=== PATIENT | female | born 1955 | race Caucasian/White ===

== ENCOUNTER 2017-08-21 10:29 | Observation (INO) ==
[2017-08-21] MEDS ORDERED: HYDROmorphone 2 MG/ML SYRINGE IV SCH (11:45)
[2017-08-21] MEDS ORDERED: ONDANSETRON 4 MG/2 ML VIAL IV ONE (11:45)
--- NOTE | 2017-08-21 11:49 | XRay Report ---
CLINICAL INFORMATION: Trauma COMPARISON: None. FINDINGS: Heart size, mediastinum and pulmonary vessels are unremarkable. Moderate subsegmental atelectasis present in the right base with minor subsegmental atelectasis in the left base. There is a 9 mm nodular density overlying the right midlung. Small bilateral pleural effusions are noted. No evidence of pneumothorax. Acute mildly displaced fractures through the lateral sixth, seventh and eighth ribs appreciated IMPRESSION: 1. Acute mildly displaced fractures through the lateral left sixth, seventh and eighth ribs. No pneumothorax. Small bilateral pleural effusions noted. 2. Subsegmental bibasilar atelectasis most prominent on the right 3. 9 mm nodular density right midlung. Suggest two view upright chest x-ray when patient returns to clinical baseline for reevaluation Interpreted and Authenticated by: Will Simpson 08/21/17
--- NOTE | 2017-08-21 12:12 | Emergency Department Note ---
Fall HPI - General Chief Complaint: Fall Stated Complaint: Fall, Left posterior upper rib pain Time Seen by Provider: 08/21/17 10:36 Source: patient Mode of arrival: ambulatory - History of Present Illness HPI Narrative: 62-year-old female presents with left rib pain and shortness of breath. States last night she was at her mom's house and has basement with stairs into her bedroom and she is missed a stair and tripped and fell. She landed on a wooden bed frame. She did not hit her head. No loss of consciousness. No head, neck , or back pain. States she is a little bit short of breath at rest and much worse with exertion. Is hard to move at all due to severe pain. She did use a topical marijuana cream with very little movement but states that the only way she can get here today to be seen. States she felt like she was having a hard time breathing last night and was clammy and hot. No cough. No fever or chills. No vomiting or diarrhea. Does have a little bit of nausea. No other home treatments. - Related Data Home Medications Medication Instructions Recorded Confirmed Calcium Carb/D3/Magnesium/Zinc 2 each PO DAILY 08/11/15 08/21/17 [Glbbxlo-Xqu-Qzkq-Vit D Tablet] Cranberry Conc/C/Bacill Coag 1 each PO DAILY 08/11/15 08/21/17 [Cranberry Tablet] Fish Oil 1,000 mg PO DAILY 08/11/15 08/21/17 Ledipasvir-Sofosbuvir 1 tab PO DAILY 08/11/15 08/21/17 Multivit with Calcium,Iron,Min 1 tab PO DAILY 08/11/15 08/21/17 [Maximum Daily Multivitamin] Mv,Iron,Min/Folic Acid/Biotin 200.1 mcg PO DAILY 08/11/15 08/21/17 [Hair, Skin & Nails Softgel] Potassium Gluconate 500 mg PO DAILY 08/11/15 08/21/17 Ubidecarenone/Vit E Acetate [Co 1 each PO DAILY 08/11/15 08/21/17 Q-10 100 mg Softgel] Vitamin D3 1,000 unit PO DAILY 08/11/15 08/21/17 Previous Rx's Medication Instructions Recorded Aspirin/Calcium Carbonate/Mag 325 mg PO BID #60 tab 10/15/15 [Aspirin Buffered 325 mg Tab] levothyroxine 125 mcg tablet 125 mcg PO QDAY #30 tab 06/21/17 Belviq 10 mg tablet 10 mg PO BID #60 tab NS 08/08/17 Allergies Allergy/AdvReac Type Severity Reaction Status Date / Time No Known Drug Allergies Allergy Verified 08/21/17 11:21 Review of Systems All systems ED: reviewed and negative except as stated. Fall PMH - Past Medical History Medical history: Reports: arthritis, hyperlipidemia, hypertension, other ( Hepatitis C) Surgical history ED: Reports: hysterectomy, other (Hip surgery) - Social History smoking status: Former smoker Alcohol use: Reports: Occasionally Drug use: Reports: marijuana (Topical cream as needed pain) Physical Exam - General Limitations: no limitations General appearance: alert, in no apparent distress - Head Head exam: atraumatic, normocephalic, normal inspection - Eye Eye exam: Present: normal appearance, PERRL. Absent: conjunctival injection, periorbital swelling, periorbital tenderness - ENT ENT exam: normal exam, normal oropharynx, mucous membranes moist, TM's normal bilaterally, normal external ear exam - Neck Neck exam: Present: normal inspection, trachea midline. Absent: tenderness, lymphadenopathy - Chest Chest inspection: Present: normal inspection, symmetric chest wall rise, tenderness (Left lateral ribs with diffuse ecchymosis and edema. Very tender to touch. No crepitus) - Respiratory Respiratory exam: Present: respiratory distress (Mild respiratory distress with a respiratory rate of 40. Shallow breathing. Lung sounds diminished to the bases otherwise clear throughout.). Absent: wheezes, stridor - Cardiovascular Cardiovascular exam: Present: regular rate, normal heart sounds - Extremities Exam Extremities exam: Present: normal inspection. Absent: pedal edema - Neurological Exam Neurological exam: Present: alert, oriented X3 - Psychiatric Psychiatric exam: Present: normal affect, normal mood - Skin Skin exam: Present: warm, dry, intact, normal color, other (Ecchymosis to ribs. Please see chest documentation) Course Vital Signs Temperature 98.3 F 08/21/17 10:30 Pulse Rate 94 H 08/21/17 10:30 Respiratory Rate 18 08/21/17 10:30 Blood Pressure 141/100 08/21/17 10:30 Pulse Oximetry (%) 96 08/21/17 10:30 Temperature 98.3 F 08/21/17 10:30 Pulse Rate 74 10/16/17 11:47 Respiratory Rate 20 08/21/17 11:48 Blood Pressure 135/91 08/21/17 11:47 Pulse Oximetry (%) 99 08/21/17 11:47 Fall - Lab Data Result diagrams: 08/21/17 12:00 08/21/17 12:00 Disposition Pt seen by [employer] SUPERVISOR/PA only: Yes Clinical Impression: Fall, Multiple rib fractures Disposition: Xfer As Inpt ([facility]) Condition: Fair Referrals: Azeb Paige, [facility], [employer] [Primary Care Provider] - Ramone Houston MD [Physician] - Time of Disposition: 12:16
[2017-08-21] MEDS: 0.9 % SODIUM CHLORIDE 1,000 ML IV SCH ×2 (12:19→15:45)
--- NOTE | 2017-08-21 12:27 | Emergency Department Note ---
ED Note Addendum Note Addendum: i HAVE EXAMINED PATIENT AND REVIEWED LAB AND XRAY AND AGREE WITH ADMITT TO [facility] FOR MULTIPLE RIB FX
[2017-08-21 12:31] LABS: Basophils # (Auto) 0 K/mcL (0.0-0.3); Basophils % (Auto) 0.1 % (0.0-2.0); Eosinophils # (Auto) 0.1 K/mcL (0.0-0.7); Eosinophils % (Auto) 0.5 % (0.0-7.0); Granulocytes % (Auto) 85.3 % (38.0-78.0); Lymphocytes # (Auto) 1.3 K/mcL (1.5-4.8); Lymphocytes % (Auto) 9.1 % (15.5-49.0); Mean Cell Volume 93.2 fL (80.0-100.0); Mean Corpuscular HGB Conc 33.7 g/dL (31.0-36.0); Mean Corpuscular Hemoglobin 31.4 pg (26.0-34.0); Monocytes # (Auto) 0.7 K/mcL (0.1-0.9); Platelet Count 269 K/mcL (140-440); RBC 4.76 M/mcL (4.00-5.20); Red Cell Distribution Width 12.8 % (11.5-14.5)
[2017-08-21 12:55] LABS: ALT/SGPT 16 U/l (0-40); Albumin 4.6 gm/dL (3.2-5.2); Albumin/Globulin Ratio 1.6 (1.0-2.3); Alkaline Phosphatase 75 U/L (39-117); Blood Urea Nitrogen 12 mg/dl (8-23)
--- NOTE | 2017-08-21 16:35 | General Surg History&Physical ---
History of Present Illness Patient information: Note initiated : 08/21/17 at 4:32 pm Service Date, if different from initiated Date: [] Patient: Julisa Ortega 62 y/o F admitted on 08/21/17 for Fall, Left posterior upper rib pain. Chief Complaint: [] HPI: Ms. Ortega is a 62 year old F who is admitted for observation after sustaining a major fall with fractures of 4 ribs on the left side. She has uncontrolled pain and severe splinting however she is not hypoxemic. She states that she fell down only 2 steps but her left posterior lateral rib cage hit a wooden bed frame causing injury. She does not have any other pulmonary difficulties. Her ribs do look osteopenic and this may have contributed to the degree of fracture. Review of Systems - Cardiovascular no dyspnea on exertion, no orthopnea, no palpatations, no rapid heart rate, no syncope - Respiratory dyspnea on exertion, pain on inspirtation, pain with cough - Gastrointestinal no abdominal pain, no bloating, no constipation, no heartburn, no nausea - Genitourinary Genitourinary: no urinary frequency (Is), no urinary incontinence - Musculoskeletal arthralgias, joint swelling, myalgias, stiffness - Integumentary no changing lesions, no new lesions, no pruritus, no rash - Neurological frequent falls, no confusion, no convulsions, no dizziness, no numbness, no syncope, no vertigo - Psychiatric no anxiety, no confusion, no depression - Endocrine no fatigue - Hematologic/Lymphatic no easy bleeding, no easy bruising, no lymphadenopathy - Allergic/Immunologic no tongue swelling, no throat swelling, no itchy eyes, no uticaria, no wheezing , no lip swelling Past History Past medical history: History of hepatitis C treated and resolved History of colon polyps Hypothyroidism History of 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 Past surgical history: Left total hip arthroplasty Right total hip arthroplasty Bilateral breast augmentation Total abdominal hysterectomy Past family history: Sister with brain cancer Brother with hypertension Dad with hypertension and coronary artery disease Past social history: Employed Former smoker Occasional alcohol user Marijuana use Medications and Allergies Home Medications Medication Instructions Recorded Confirmed Type Calcium Carb/D3/Magnesium/Zinc 2 each PO DAILY 08/11/15 08/21/17 History [Acysyja-Ski-Cnnj-Vit D Tablet] Cranberry Conc/C/Bacill Coag 1 each PO DAILY 08/11/15 08/21/17 History [Cranberry Tablet] Fish Oil 1,000 mg PO DAILY 08/11/15 08/21/17 History Ledipasvir-Sofosbuvir 1 tab PO DAILY 08/11/15 08/21/17 History Multivit with Calcium,Iron,Min 1 tab PO DAILY 08/11/15 08/21/17 History [Maximum Daily Multivitamin] Mv,Iron,Min/Folic Acid/Biotin 200.1 mcg PO DAILY 08/11/15 08/21/17 History [Hair, Skin & Nails Softgel] Potassium Gluconate 500 mg PO DAILY 08/11/15 08/21/17 History Ubidecarenone/Vit E Acetate [Co 1 each PO DAILY 08/11/15 08/21/17 History Q-10 100 mg Softgel] Vitamin D3 1,000 unit PO DAILY 08/11/15 08/21/17 History Aspirin/Calcium Carbonate/Mag 325 mg PO BID #60 tab 08/20/15 08/21/17 Rx [Aspirin Buffered 325 mg Tab] levothyroxine 125 mcg tablet 125 mcg PO QDAY #30 tab 06/21/17 08/21/17 Rx Belviq 10 mg tablet 10 mg PO BID #60 tab NS 08/08/17 08/21/17 Rx Allergies Allergy/AdvReac Type Severity Reaction Status Date / Time No Known Drug Allergies Allergy Verified 08/21/17 14:33 Exam Temp Pulse Resp BP Pulse Ox 97.8 F 76 16 123/87 94 08/21/17 13:40 08/21/17 13:14 08/21/17 13:40 08/21/17 13:40 08/21/17 13:40 - General physical appearance well developed, well nourished, moderate distress, moderate pain, obese - Eyes PERRL, normal ocular movement - ENT normal pinna, normal nares, normal mucosa, no hearing loss, no congestion - Head Head exam IM: Present: atraumatic, normocephalic - Neck no masses, no bruits, trachea midline, no lymphadectomy, no venous distension - Cardiovascular Cardiovascular exam IM: Present: normal rate and rhythm, RRR, +S1, +S2. Absent : gallop, JVD, systolic murmur - Respiratory clear to percussion, clear to auscultation, other (Decreased breath sounds bilaterally; much more prominent on the left side with significant splinting; No pleural rub or crepitus) - Abdomen Abdomen: Present: soft, non tender, bowel sounds Hernia: Present: none - Integumentary Present: no rash, no growths, no abnormal pigmentation, other (Ecchymosis left flank without significant hematoma) - Neurologic Present: normal coordination, normal sensation - Musculoskeletal Present: normal gait, normal posture - Psychiatric Present: oriented to time, oriented to person, oriented to place, speech is normal, memory intact Assessment and Plan (1) Multiple rib fractures Will give adequate narcotic analgesics Follow-up chest x-ray in the morning [facility] hourly while awake Status: Acute (2) Hypothyroidism Status: Chronic Qualifiers: Hypothyroidism type: acquired Qualified Code(s): E03.9 - Hypothyroidism, unspecified (3) Hepatitis C virus Status: Resolved Comment: 2002 exposed through her ex-; she has completed Harvoni treatment and has been told that this has resolved.
[2017-08-22] MEDS: 0.9 % SODIUM CHLORIDE 1,000 ML IV SCH ×5 (01:50→22:08)
[2017-08-22] MEDS ORDERED: ONDANSETRON 4 MG/2 ML VIAL IV PRN (05:10)
[2017-08-22] MEDS ORDERED: ACETAMINOPHEN 325 MG TABLET PO ONE (05:20)
[2017-08-22] MEDS ORDERED: ONDANSETRON 4 MG/2 ML VIAL ONE (05:20)
[2017-08-22 05:34] LABS: Basophils # (Auto) 0 K/mcL (0.0-0.3); Basophils % (Auto) 0.3 % (0.0-2.0); Eosinophils # (Auto) 0 K/mcL (0.0-0.7); Eosinophils % (Auto) 0.5 % (0.0-7.0); Granulocytes % (Auto) 66.6 % (38.0-78.0); Lymphocytes # (Auto) 2.2 K/mcL (1.5-4.8); Lymphocytes % (Auto) 25.3 % (15.5-49.0); Mean Cell Volume 93.8 fL (80.0-100.0); Mean Corpuscular HGB Conc 33.6 g/dL (31.0-36.0); Mean Corpuscular Hemoglobin 31.5 pg (26.0-34.0); Monocytes # (Auto) 0.6 K/mcL (0.1-0.9); Monocytes % (Auto) 7.3 % (1.0-12.0); Platelet Count 227 K/mcL (140-440); RBC 4.09 M/mcL (4.00-5.20); Red Cell Distribution Width 13.1 % (11.5-14.5)
[2017-08-22 06:11] LABS: ALT/SGPT 15 U/l (0-40); Albumin 3.6 gm/dL (3.2-5.2); Albumin/Globulin Ratio 1.5 (1.0-2.3); Alkaline Phosphatase 59 U/L (39-117); Bilirubin,Direct < 0.2 mg/dL (0.0-0.3); Blood Urea Nitrogen 9 mg/dl (8-23); Gamma Glutamyl Transpeptidase 11 U/L (5-36); Magnesium 2.1 mg/dL (1.6-2.5); Uric Acid 4.3 mg/dL (2.5-8.0)
[2017-08-22] MEDS ORDERED: oxyCODONE/APAP 10/325MG TABLET PO PRN (08:49)
--- NOTE | 2017-08-22 09:40 | XRay Report ---
CLINICAL INFORMATION: Bilateral rib fractures and hemothorax - trauma COMPARISON: 08/20/2017 chest and rib films FINDINGS: Heart size is accentuated by portable technique, right rotation and lordotic positioning. Mediastinum and pulmonary vessels are normal. There is minor bibasilar atelectasis. No evidence of pneumo or hemothorax on today's study. Acutely mildly displaced fractures of the lateral left sixth seventh and eight ribs seen - as before IMPRESSION: Acute mildly displaced fractures of the lateral left sixth seventh and eighth ribs. No evidence of pneumo or hemothorax. Interpreted and Authenticated by: Will Simpson 08/22/17
[2017-08-22] MEDS: ACETAMINOPHEN 325 MG TABLET PO PRN ×2 (12:03→15:34)
[2017-08-22] MEDS ORDERED: MEPERIDINE 25 MG/ML SYRINGE IV PRN (12:57)
--- NOTE | 2017-08-22 13:06 | General Surgery Progress Note ---
Subjective Patient reports: still having pain, flatus, nausea, vomiting, shortness of breath, afebrile Narrative: Note initiated : 08/22/17 at 1:04 pm Service Date, if different from initiated Date: [] Patient: Julisa Ortega 62 y/o F admitted on 08/21/17 for Fall, Lt Posterior Upper Rib Pain/Multiple Rib Fx. Chief patient's left-sided chest pain is about the same. She is having some nausea with vomiting related to her narcotic analgesics. Chest x-ray shows no evidence of pneumothorax or pulmonary infiltrate though she does have some basilar atelectasis. Her inspiratory effort is still poor and her maximum inspiration is only 750 cc. This is slightly better than on yesterday. She is limited by pain due to the pleuritic discomfort.] Objective Temp Pulse Resp BP Pulse Ox 98.0 F 62 18 103/72 97 08/22/17 12:00 08/22/17 07:41 08/22/17 12:00 08/22/17 12:00 08/22/17 12:00 - Additional Data Intake & Output - Last 24 hours: Intake & Output 08/20/17 08/21/17 08/22/17 08/23/17 05:59 05:59 05:59 05:59 Intake Total 2580 / 2580 1240 / 1240 Output Total 1050 / 1050 100 / 100 Balance 1530 / 1530 1140 / 1140 Weight 190 lb - General physical appearance moderate distress, moderate pain - Eyes PERRL - ENT no congestion - Neck no venous distension - Respiratory other (Bilateral splinting much more prominent on left than on right with poor inspiratory effort; decreased breath sounds at bases bilaterally) - Cardiovascular Cardiovascular exam: Present: normal rate and rhythm, RRR, +S1, +S2. Absent: gallop, JVD, systolic murmur - Abdomen soft, non tender, distended (Abdomen is benign and nontender with good active bowel sounds) - Integumentary no rash, no growths, no abnormal pigmentation - Neurologic normal coordination, normal sensation - Psychiatric oriented to time, oriented to person, oriented to place, speech is normal, memory intact - Labs 08/22/17 04:00 08/22/17 04:00 Diabetes panel 08/22/17 Range/Units 04:00 Sodium 139 (133-145) mmol/L Potassium 3.8 (3.3-5.1) mmol/L Chloride 102 (96-108) mmol/L Carbon Dioxide 25 (22-30) mmol/L BUN 9 (8-23) mg/dl Creatinine 0.7 (0.6-1.1) mg/dl Glucose 105 (70-105) mg/dL Calcium 8.3 L (8.6-10.4) mg/dl AST 25 (0-37) U/l ALT 15 (0-40) U/l Alkaline Phosphatase 59 (39-117) U/L Total Protein 6.0 (5.9-8.4) gm/dL Albumin 3.6 (3.2-5.2) gm/dL Triglycerides 78 (<150) mg/dl Calcium panel 08/22/17 Range/Units 04:00 Calcium 8.3 L (8.6-10.4) mg/dl Phosphorus 3.4 (2.7-4.5) mg/dL Albumin 3.6 (3.2-5.2) gm/dL Pituitary panel 08/22/17 Range/Units 04:00 Sodium 139 (133-145) mmol/L Potassium 3.8 (3.3-5.1) mmol/L Chloride 102 (96-108) mmol/L Carbon Dioxide 25 (22-30) mmol/L BUN 9 (8-23) mg/dl Creatinine 0.7 (0.6-1.1) mg/dl Glucose 105 (70-105) mg/dL Calcium 8.3 L (8.6-10.4) mg/dl Adrenal panel 08/22/17 Range/Units 04:00 Sodium 139 (133-145) mmol/L Potassium 3.8 (3.3-5.1) mmol/L Chloride 102 (96-108) mmol/L Carbon Dioxide 25 (22-30) mmol/L BUN 9 (8-23) mg/dl Creatinine 0.7 (0.6-1.1) mg/dl Glucose 105 (70-105) mg/dL Calcium 8.3 L (8.6-10.4) mg/dl Total Bilirubin 0.6 (0.0-1.0) mg/dL AST 25 (0-37) U/l ALT 15 (0-40) U/l Alkaline Phosphatase 59 (39-117) U/L Total Protein 6.0 (5.9-8.4) gm/dL Albumin 3.6 (3.2-5.2) gm/dL Assessment and Plan (1) Multiple rib fractures Status: Acute Assessment and plan: Patient will be discharged after I can find a narcotic analgesics that is effective but does not cause nausea and vomiting. Current Visit: Yes (2) Hypothyroidism Status: Chronic Current Visit: No - Time Spent With Patient Total time spent is greater than 50% in coordination of care (as documented) at patient's floor/unit and/or counseling patient:
[2017-08-22] MEDS: MEPERIDINE 50 MG TABLET PO PRN ×2 (13:40→21:29)
[2017-08-23] MEDS: MEPERIDINE 50 MG TABLET PO PRN ×3 (01:34→10:28)
[2017-08-23] MEDS: 0.9 % SODIUM CHLORIDE 1,000 ML IV SCH (08:25)
--- NOTE | 2017-08-23 12:34 | Discharge Summary ---
Providers - Providers Patient information: Note initiated : 08/23/17 at 12:30 pm Service Date, if different from initiated Date: [] Patient: Julisa Ortega 62 y/o F admitted on 08/21/17 for Fall, Lt Posterior Upper Rib Pain/Multiple Rib Fx. Chief Complaint: [] Date of admission: 08/21/17 Discharge date: 08/23/17 Attending physician: Ramone Houston Hospitalization Hospital course: 62-year-old female who fell at home on the day prior to admission. She fell down 2 steps but landed her left chest on a wooden bed frame. She had increasing pain and shortness of breath and was seen in the emergency room where it was noted that she had 3 displaced rib fractures and one nondisplaced rib fracture with a small hemothorax. She has severe splinting which was poorly controlled with analgesics. The patient was admitted for observation but because of severe pain she was not stable for discharge last evening. She has done well overnight and a Demerol controls her pain very well. Her inspiratory volume is still only 750 cc but her O2 saturations are good. She is not tachypneic. Chest x-ray does not show any increased effusion or pneumothorax. She is stable for discharge. Discharge diagnosis: Multiple left chest rib fractures Secondary discharge diagnosis: Pulmonary hypoventilation due to multiple rib fractures Reason for admission: Uncontrolled chest pain due to rib fractures Complications: None Exam Temp Pulse Resp BP Pulse Ox 98.6 F 69 18 129/76 91 08/23/17 11:33 08/23/17 04:00 08/23/17 11:33 08/23/17 11:33 08/23/17 11:33 - General physical appearance well developed, well nourished, no distress - Eyes PERRL, normal ocular movement - ENT normal pinna, normal nares, normal mucosa, no hearing loss, no congestion - Head Head exam IM: Present: atraumatic, normocephalic - Neck no masses, no bruits, trachea midline, no lymphadectomy, no venous distension - Cardiovascular Cardiovascular exam IM: Present: normal rate and rhythm - Respiratory other (Moderately poor inspiratory effort but with equal breath sounds bilaterally; major splinting; no pleural rub) - Abdomen Abdomen: Present: soft, non tender, bowel sounds Hernia: Present: none - Integumentary Present: no rash, no growths, no abnormal pigmentation - Neurologic Present: normal coordination, normal sensation - Musculoskeletal Present: normal gait, normal posture - Psychiatric Present: oriented to time, oriented to person, oriented to place, speech is normal, memory intact Discharge Plan - Patient/Caregiver Discharge Instructions Activity: increase activity as tolerated Diet: Regular Diet Additional Instructions: Use inspiratory care hourly while awake to prevent pneumonia. To avoid constipation while taking any narcotic pain medication, take an over the counter stool softener/laxative. Call your physician for fevers above 100.5 or pain not controlled by medication. Your prescriptions are with your discharge information. Some medications were electronically transmitted to your pharmacy of choice. Prescriptions: Meperidine [Demerol] 50 mg PO Q4HP PRN #60 tab PRN Reason: Pain Ondansetron [Zofran] 4 mg IV Q4HP PRN #30 vial PRN Reason: Nausea And Vomiting - Follow up Plan Follow up with: Azeb Paige DNP, [employer] SUPERVISOR [Primary Care Provider] - 08/30/17 9:30 am () Disposition: Home, Self-Care Prognosis: Good Rehab Potential: Good I certify that the patient requires SNF services.: No (You know getting ready to move 1) Overall status at discharge: patient is not back to baseline Pending Studies Resuscitation Status Full Code Diet Regular Diet Start MonAug 21 Breakfast Acetaminophen (Tylenol) 650 mg PO Q4HP PRN PRN Reason: PAIN/FEVER > 101 Last Admin: 08/22/17 15:34 Dose: 650 mg Admin: 08/22/17 12:03 Dose: 650 mg Sodium Chloride (Sodium Chloride 0.9%) 1,000 mls @ 100 mls/hr IV .Q10H TOSIN Last Admin: 08/23/17 08:25 Dose: 100 mls/hr Infusion: 08/23/17 08:08 Dose: 100 mls/hr Admin: 08/22/17 22:08 Dose: 100 mls/hr Infusion: 08/22/17 22:06 Dose: 100 mls/hr Admin: 08/22/17 19:11 Dose: Not Given Admin: 08/22/17 12:06 Dose: 100 mls/hr Infusion: 08/22/17 11:50 Dose: 100 mls/hr Admin: 08/22/17 09:05 Dose: Not Given Admin: 08/22/17 01:50 Dose: 100 mls/hr Infusion: 08/22/17 01:45 Dose: 100 mls/hr Admin: 08/21/17 15:45 Dose: 100 mls/hr Infusion: 08/21/17 13:43 Dose: 0 mls/hr Admin: 08/21/17 12:19 Dose: 100 mls/hr Meperidine HCl (Demerol) 50 mg PO Q4HP PRN PRN Reason: Pain Last Admin: 08/23/17 10:28 Dose: 50 mg Admin: 08/23/17 05:28 Dose: 50 mg Admin: 08/23/17 01:34 Dose: 50 mg Admin: 08/22/17 21:29 Dose: 50 mg Admin: 08/22/17 13:40 Dose: 50 mg Morphine Sulfate (Morphine) 4 mg IV Q2HP PRN PRN Reason: Pain Last Admin: 08/22/17 02:00 Dose: 4 mg Admin: 08/21/17 23:51 Dose: 4 mg Admin: 08/21/17 20:14 Dose: 4 mg Ondansetron HCl (Zofran) 4 mg IV Q4HP PRN PRN Reason: Nausea And Vomiting Last Admin: 08/22/17 12:19 Dose: 4 mg Oxycodone/Acetaminophen (Percocet 10-325mg) 1 tab PO Q4-6HP PRN PRN Reason: Pain Last Admin: 08/22/17 09:05 Dose: 1 tab Shift Summary 08/23/17 04:39 Shift Summary by Qiana Stapleton Slept most of the night. Headache pain is pretty much gone. Rib/back pain tolerable when she's in bed, but reach 8-9/10 when she moves & gets out of bed to . Has been taking just PO meds for pain. Nausea has been much better tonight - no need for meds & no emesis. She knows she'll need to go home today, she's just not sure how she's going to manage when she can't do anything w/o being in severe pain. Initialized on 08/23/17 04:39 - END OF NOTE
--- NOTE | 2017-08-23 12:51 | Discharge Summary ---
Providers - Providers Patient information: Note initiated : 08/23/17 at 12:29 pm Service Date, if different from initiated Date: [] Patient: Julisa Ortega 62 y/o F admitted on 08/21/17 for Fall, Lt Posterior Upper Rib Pain/Multiple Rib Fx. Chief Complaint: [] Date of admission: 08/21/17 Discharge date: 08/23/17 Attending physician: Ramone Houston Exam Temp Pulse Resp BP Pulse Ox 98.6 F 69 18 129/76 91 08/23/17 11:33 08/23/17 04:00 08/23/17 11:33 08/23/17 11:33 08/23/17 11:33 Discharge Plan - Patient/Caregiver Discharge Instructions Activity: increase activity as tolerated Diet: Regular Diet Additional Instructions: Use inspiratory care hourly while awake to prevent pneumonia. To avoid constipation while taking any narcotic pain medication, take an over the counter stool softener/laxative. Call your physician for fevers above 100.5 or pain not controlled by medication. Your prescriptions are with your discharge information. Some medications were electronically transmitted to your pharmacy of choice. Prescriptions: Meperidine [Demerol] 50 mg PO Q4HP PRN #60 tab PRN Reason: Pain Ondansetron [Zofran] 4 mg IV Q4HP PRN #30 vial PRN Reason: Nausea And Vomiting - Follow up Plan Follow up with: Azeb Paige, AL[employer], FRAME TABLE OPERATOR [Primary Care Provider] - 08/30/17 9:30 am () Disposition: Home, Self-Care Prognosis: Good Rehab Potential: Good I certify that the patient requires SNF services.: No (You know getting ready to move 1) Pending Studies Resuscitation Status Full Code Diet Regular Diet Start MonAug 21 Breakfast Acetaminophen (Tylenol) 650 mg PO Q4HP PRN PRN Reason: PAIN/FEVER > 101 Last Admin: 08/22/17 15:34 Dose: 650 mg Admin: 08/22/17 12:03 Dose: 650 mg Sodium Chloride (Sodium Chloride 0.9%) 1,000 mls @ 100 mls/hr IV .Q10H TOSIN Last Admin: 08/23/17 08:25 Dose: 100 mls/hr Infusion: 08/23/17 08:08 Dose: 100 mls/hr Admin: 08/22/17 22:08 Dose: 100 mls/hr Infusion: 08/22/17 22:06 Dose: 100 mls/hr Admin: 08/22/17 19:11 Dose: Not Given Admin: 08/22/17 12:06 Dose: 100 mls/hr Infusion: 08/22/17 11:50 Dose: 100 mls/hr Admin: 08/22/17 09:05 Dose: Not Given Admin: 08/22/17 01:50 Dose: 100 mls/hr Infusion: 08/22/17 01:45 Dose: 100 mls/hr Admin: 08/21/17 15:45 Dose: 100 mls/hr Infusion: 08/21/17 13:43 Dose: 0 mls/hr Admin: 08/21/17 12:19 Dose: 100 mls/hr Meperidine HCl (Demerol) 50 mg PO Q4HP PRN PRN Reason: Pain Last Admin: 08/23/17 10:28 Dose: 50 mg Admin: 08/23/17 05:28 Dose: 50 mg Admin: 08/23/17 01:34 Dose: 50 mg Admin: 08/22/17 21:29 Dose: 50 mg Admin: 08/22/17 13:40 Dose: 50 mg Morphine Sulfate (Morphine) 4 mg IV Q2HP PRN PRN Reason: Pain Last Admin: 08/22/17 02:00 Dose: 4 mg Admin: 08/21/17 23:51 Dose: 4 mg Admin: 08/21/17 20:14 Dose: 4 mg Ondansetron HCl (Zofran) 4 mg IV Q4HP PRN PRN Reason: Nausea And Vomiting Last Admin: 08/22/17 12:19 Dose: 4 mg Oxycodone/Acetaminophen (Percocet 10-325mg) 1 tab PO Q4-6HP PRN PRN Reason: Pain Last Admin: 08/22/17 09:05 Dose: 1 tab Shift Summary 08/23/17 04:39 Shift Summary by Qiana Stapleton Slept most of the night. Headache pain is pretty much gone. Rib/back pain tolerable when she's in bed, but reach 8-9/10 when she moves & gets out of bed to BR. Has been taking just PO meds for pain. Nausea has been much better tonight - no need for meds & no emesis. She knows she'll need to go home today, she's just not sure how she's going to manage when she can't do anything w/o being in severe pain. Initialized on 08/23/17 04:39 - END OF NOTE
== END 2017-08-23 13:20 | disposition home or self-care (01) ==
LOC: ED 10:29 → MEDSUR 10:29
PROVIDERS: ADMIT Family Medicine Adult Medicine; ATTEND Family Medicine Adult Medicine